=== PATIENT | male | born 2000 | race Caucasian/White ===

== ENCOUNTER 2019-12-28 08:02 | Emergency (ER) | payer BC ==
[2019-12-28] MEDS ORDERED: Ketorolac 60 MG/2 ML SDV IVPUSH ONE (08:51)
[2019-12-28] MEDS ORDERED: Sodium Chloride 0.9% 10 ML Syringe FLUSH PRN (08:51)
[2019-12-28] MEDS ORDERED: Ketorolac 30 MG/ML SDV ONE (09:09)
--- NOTE | 2019-12-28 09:19 | EDM.PDOC ---
ED HPI GENERAL MEDICAL PROBLEM - General Chief Complaint: General Stated Complaint: POSSIBLE APPENDICS ATTACK Time Seen by Provider: 12/28/19 08:30 Source of Information: Reports: Patient History Limitations: Reports: No Limitations - History of Present Illness INITIAL COMMENTS - FREE TEXT/NARRATIVE: pt states intermittent left side flank pain and generalized abdominal pain sta rting 2-3 days ago. pt describes flank pain as achy and abdominal pain as sharp, coinciding symptoms of nausea, chills. pt has not attempted interventions at home and is unaware of alleviating factors, no known aggravating factors. pt denies fever, dysuria, pyuria, hematuria, vomiting, constipation. - Related Data Allergies Allergy/AdvReac Type Severity Reaction Status Date / Time Sulfa (Sulfonamide Allergy Rash Verified 12/28/19 09:06 Antibiotics) ED ROS GENERAL - Review of Systems Review Of Systems: Comprehensive ROS is negative, except as noted in HPI. ED EXAM, GENERAL - Physical Exam Exam: See Below Exam Limited By: No Limitations General Appearance: Alert, WD/WN, No Apparent Distress Eye Exam: Bilateral Eye: EOMI, PERRL Head: Atraumatic, Normocephalic Neck: Normal Inspection Respiratory/Chest: No Respiratory Distress, Lungs Clear, Normal Breath Sounds, No Accessory Muscle Use Cardiovascular: Normal Peripheral Pulses, Regular Rate, Rhythm, No Edema, No Murmur Peripheral Pulses: 2+: Radial (L), Radial (R), Posterior Tibial (L), Posterior Tibial (R) GI/Abdominal: Normal Bowel Sounds, Soft, Non-Tender, No Organomegaly, No Distention Back Exam: Other (no CVA tenderness) Extremities: Normal Inspection Neurological: Alert, Oriented, CN II-XII Intact, Normal Cognition, Normal Gait Psychiatric: Normal Affect, Normal Mood Skin Exam: Warm, Dry, Intact Course - Orders/Labs/Meds Orders: Active Orders 24 hr Category Date Time Status Abdomen Pelvis wo Cont [CT] Stat Exams 12/28/19 09:12 Taken Sodium Chloride 0.9% [Saline Flush] Med 12/28/19 08:51 Active 10 ml FLUSH ASDIRECTED PRN Peripheral IV Insertion Adult [OM.PC] Routine Oth 12/28/19 08:51 Ordered Medication Orders Sodium Chloride (Saline Flush) 10 ml FLUSH ASDIRECTED PRN PRN Reason: Keep Vein Open Labs: Laboratory Tests 0712/28/19 12/28/19 Range/Units 08:30 08:30 08:30 WBC 5.1 (4.0-11.0) K/uL RBC 5.44 (4.50-6.50) M/uL Hgb 16.7 (13.0-18.0) g/dL Hct 46.0 (40.0-54.0) % MCV 85 (76-96) fL MCH 30.7 (27.0-32.0) pg MCHC 36.3 H (31.0-35.0) g/dL RDW 12.6 (11.0-16.0) % Plt Count 198 (150-400) K/uL MPV 10.3 H (6.0-10.0) fL Neut % (Auto) 58.2 (45.0-70.0) % Lymph % (Auto) 27.2 (20.0-40.0) % [place] % (Auto) 13.0 H (3.0-10.0) % Eos % (Auto) 0.8 L (1.0-5.0) % Baso % (Auto) 0.8 H (0.0-0.5) % Neut # (Auto) 2.96 (2.00-7.50) K/uL Lymph # (Auto) 1.38 L (1.50-4.00) K/uL [place] # (Auto) 0.66 (0.20-0.80) K/uL Eos # (Auto) 0.04 (0.04-0.40) K/uL Baso # (Auto) 0.04 (0.02-0.10) K/uL Sodium 139 (136-145) mmol/L Potassium 4.1 (3.5-5.1) mmol/L Chloride 105 (98-107) mmol/L Carbon Dioxide 28.8 (21.0-32.0) mmol/L Anion Gap 9.3 (5.0-15.0) mmol/L BUN 10 (8-26) mg/dL Creatinine 1.05 (0.70-1.30) mg/dL Est Cr Clr Drug Dosing TNP Estimated GFR (MDRD) > 60 (>60) MLS/MIN BUN/Creatinine Ratio 9.5 (6-25) Glucose 96 (74-100) mg/dL Calcium 9.2 (8.5-10.1) mg/dL Total Bilirubin 1.1 H (0.0-1.0) mg/dL AST 15 (15-37) U/L ALT 20 (12-78) U/L Alkaline Phosphatase 64 (46-116) U/L C-Reactive Protein 0.7 (0.0-3.0) mg/L Total Protein 7.4 (6.4-8.2) g/dL Albumin 4.2 (3.4-5.0) g/dL Globulin 3.2 (2.2-4.2) g/dL Albumin/Globulin Ratio 1.3 (0.8-2.0) Urine Color Urine Appearance (CLEAR) Urine pH (5.0-8.0) Ur Specific [place] (1.003-1.030) Urine Protein (NEGATIVE) mg/dL Urine Glucose (UA) (NEGATIVE) mg/dL Urine Ketones (NEGATIVE) mg/dL Urine Occult Blood (NEGATIVE) Urine Nitrite (NEGATIVE) Urine Bilirubin (NEGATIVE) Urine Urobilinogen (0.2-1.0) E.U./dL Ur Leukocyte Esterase (NEGATIVE) 12/28/19 Range/Units 08:54 WBC (4.0-11.0) K/uL RBC (4.50-6.50) M/uL Hgb (13.0-18.0) g/dL Hct (40.0-54.0) % MCV (76-96) fL MCH (27.0-32.0) pg MCHC (31.0-35.0) g/dL RDW (11.0-16.0) % Plt Count (150-400) K/uL MPV (6.0-10.0) fL Neut % (Auto) (45.0-70.0) % Lymph % (Auto) (20.0-40.0) % [place] % (Auto) (3.0-10.0) % Eos % (Auto) (1.0-5.0) % Baso % (Auto) (0.0-0.5) % Neut # (Auto) (2.00-7.50) K/uL Lymph # (Auto) (1.50-4.00) K/uL [place] # (Auto) (0.20-0.80) K/uL Eos # (Auto) (0.04-0.40) K/uL Baso # (Auto) (0.02-0.10) K/uL Sodium (136-145) mmol/L Potassium (3.5-5.1) mmol/L Chloride (98-107) mmol/L Carbon Dioxide (21.0-32.0) mmol/L Anion Gap (5.0-15.0) mmol/L BUN (8-26) mg/dL Creatinine (0.70-1.30) mg/dL Est Cr Clr Drug Dosing Estimated GFR (MDRD) (>60) MLS/MIN BUN/Creatinine Ratio (6-25) Glucose (74-100) mg/dL Calcium (8.5-10.1) mg/dL Total Bilirubin (0.0-1.0) mg/dL AST (15-37) U/L ALT (12-78) U/L Alkaline Phosphatase (46-116) U/L C-Reactive Protein (0.0-3.0) mg/L Total Protein (6.4-8.2) g/dL Albumin (3.4-5.0) g/dL Globulin (2.2-4.2) g/dL Albumin/Globulin Ratio (0.8-2.0) Urine Color Yellow Urine Appearance Clear (CLEAR) Urine pH 6.0 (5.0-8.0) Ur Specific [place] >= 1.030 (1.003-1.030) Urine Protein Negative (NEGATIVE) mg/dL Urine Glucose (UA) Negative (NEGATIVE) mg/dL Urine Ketones Negative (NEGATIVE) mg/dL Urine Occult Blood Negative (NEGATIVE) Urine Nitrite Negative (NEGATIVE) Urine Bilirubin Negative (NEGATIVE) Urine Urobilinogen 0.2 (0.2-1.0) E.U./dL Ur Leukocyte Esterase Negative (NEGATIVE) Meds: Medications Generic Name Dose Route Start Last Admin Trade Name Freq PRN Reason Stop Dose Admin Sodium Chloride 10 ml 12/28/19 08:51 Saline Flush FLUSH ASDIRECTED PRN Keep Vein Open Discontinued Medications Generic Name Dose Route Start Last Admin Trade Name Freq PRN Reason Stop Dose Admin Ketorolac Tromethamine 15 mg 12/28/19 08:51 12/28/19 09:03 Toradol IVPUSH 12/28/19 08:52 15 mg ONETIME ONE Administration Ketorolac Tromethamine Confirm 12/28/19 09:09 12/28/19 09:24 Toradol Administered 12/28/19 09:10 Not Given Dose 30 mg .ROUTE .STK-MED ONE Departure - Departure Time of Disposition: 10:49 Disposition: Home, Self-Care 01 Condition: Good Clinical Impression: Renal calculus or stone - Discharge Information *PRESCRIPTION DRUG MONITORING PROGRAM REVIEWED*: Not Applicable *COPY OF PRESCRIPTION DRUG MONITORING REPORT IN PATIENT NBA: Not Applicable Instructions: Kidney Stones, [id number] Referrals: PCP,None [Primary Care Provider] - Forms: ED Department Discharge Additional Instructions: you have a kidney stone on CT drink at least 100oz of water a day, more if you're spending time outside this may take 1-2 weeks to pass. prescription for zofran provided. tylenol 1000mg and ibuprofen 600mg four times a day as needed for pain. if symptoms worsen or aren't able to be controlled by the zofran, tylenol or ibuprofen, please return to the ER for a recheck. kidney function looked normal, as did your UA and no infection seen in UA or blood work. - Problem List & Annotations (1) Renal calculus or stone SNOMED Code(s): 71996732 Code(s): N20.0 - CALCULUS OF KIDNEY Status: Acute Current Visit: Yes - Problem List Review Problem List Initiated/Reviewed/Updated: Yes - My Orders Last 24 Hours: My Active Orders 12/28/19 08:51 Sodium Chloride 0.9% [Saline Flush] 10 ml FLUSH ASDIRECTED PRN Peripheral IV Insertion Adult [OM.PC] Routine 12/28/19 09:12 Abdomen Pelvis wo Cont [CT] Stat - Assessment/Plan Last 24 Hours: My Active Orders 12/28/19 08:51 Sodium Chloride 0.9% [Saline Flush] 10 ml FLUSH ASDIRECTED PRN Peripheral IV Insertion Adult [OM.PC] Routine 12/28/19 09:12 Abdomen Pelvis wo Cont [CT] Stat Assessment:: assessment: renal calculi plan: push fluids, zofran and tylenol and ibuprofen if symptoms worsen or are not controlled with current regimen, return to ER differential considered were appendicitis, renal stone, cystitis. this pt was evaluated in the setting of covid 19 pandemic.
[2019-12-28] MEDS ORDERED: Ondansetron 4 MG Tab.DIS ONE (11:00)
--- NOTE | 2019-12-29 10:27 | CT ---
DATE OF SERVICE: 12/28/19 CLINICAL DATA: CT Abd Pelvis renal stone protocol UNENHANCED ABDOMEN AND PELVIC CT: Multislice axial acquisition without IV or oral contrast was performed. No priors. The lung bases are clear. The heart size is normal. The unenhanced liver appears normal. The gallbladder appears normal. The spleen appears normal. The pancreas appears normal. The right and left adrenals appear normal. The kidneys are normal size. There are subtle calcific densities in the region of the renal pyramids bilaterally, suggesting medullary sponge kidney. The kidneys otherwise appear normal. No hydronephrosis or hydroureter. No evidence of ureteral calculi. The bladder is partially fluid filled. It appears normal. No evidence of appendix. No free air. No free fluid. No dilated loops of bowel. No adenopathy. No aortic aneurysm. There is a moderate amount of gas and stool present throughout the colon. [id number] [facility]
== END 2019-12-28 11:05 | disposition home or self-care (01) ==
LOC: LB.ED 08:02
DX: N20.0 Calculus of kidney (principal); Z88.2 Allergy status to sulfonamides
CPT/HCPCS: 36415; 74176; 80053; 81003; 85025; 86140; 96374; 99284; A9270; J1885